=== PATIENT | female | born 1950 | race Caucasian/White ===

== ENCOUNTER 2017-12-30 13:59 | Inpatient (IN) | payer OTHER, MEDICARE ==
[~2017-12-30] VITALS: Ht 170.2 cm; Wt 162.2 kg
[~2017-12-30 13:59] MED LIST: ACIDOPHILUS1 EAC4 PO; ALTACE10 MG PO; ASPIRIN325 MG PO; Asacol PO; Ascorbic Acid,Ester- PO; B-COMPLEX-VITA1 EACH PO; BACTRIM,SEPT1 TABLET PO; Bentyl PO; CALCIUM 600 +1 EACH PO; CORGARD20 MG PO; CYCLOSET0.8 MG PO; Corgard PO; Diabeta,Micronase PO; FLAX OIL1000 MG PO; FUROSEMIDE20 MG PO; GLUCOPHAGE1000 MG PO; GLYBURIDE5 MG PO; Glyburide PO; Imodium PO; KEFLEX500 MG PO; LEVEMIR FL100 UNITS/ SC; LOTENSIN40 MG PO; Lumigan 0.01% Ophth BOTH EYES; NEURONTIN300 MG PO; NOVOLIN N100 UNITS/ SC; NOVOLIN,HU100 UNITS1 SC; NovoLOG, HumaLOG SC; OMEGA-3 FLAXS1000 MG PO; Oscal 500 w/Vitamin PO; PRILOSEC40 MG PO; PROBIOTIC & AC1 EACH PO; PROBIOTIC PO; RAMIPRIL10 MG PO; Ramipril PO; SIMVASTATIN20 MG PO; SUPER B COMP1 TABLET PO; SYNTHROID50 MCG PO; VITAMIN C1000 M1 PO; VITAMIN D2000 INTUN PO; VITAMIN D31000 UNIT PO; VITAMIN D400 UNIT PO; Vancocin Oral Soluti PO; Victoza SC; Vitamin B Complex PO; ZOCOR20 MG PO; ZOFRAN4 MG PO; Zocor PO; [UNRECOGNIZED DRUG - OTHER] PO; oxyCODONE PO
[2017-12-30 15:28] LABS: BASOPHIL (%) 0.9 % (0-1); EOSINOPHIL (%) 6.3 % (0-5); EOSINOPHIL COUNT 0.3 K/uL (0-0.3); HEMATOCRIT 27.3 % (36.0-46.0); HEMOGLOBIN 8.5 G/DL (11.9-15.5); IMMATURE GRANULOCYTE (%) 0.5 % (0.0-0.7); LYMPHOCYTE (%) 26.8 % (15-42); LYMPHOCYTE COUNT 1.2 K/uL (1.0-2.8); MCHC 31.1 G/DL (30.0-36.0); MCV 83.5 FL (83-99); MONOCYTE (%) 8.6 % (3-12); MONOCYTE COUNT 0.4 K/uL (0-0.8); NEUTROPHIL (%) 56.9 % (45-76); NEUTROPHIL COUNT 2.5 K/uL (1.8-6.4); PLATELET COUNT 91 K/uL (156-360); RBC DIS.WIDTH-CV 18.2 % (11.8-14.6); RBC DIS.WIDTH-SD 55.9 % (39-53); RED BLOOD COUNT 3.27 M/uL (3.80-5.20); WHITE BLOOD COUNT 4.4 K/uL (4.1-10.2)
[2017-12-30 15:38] LABS: ALBUMIN 2.6 g/dL (3.2-4.8)
[2017-12-30 15:39] LABS: CHLORIDE 110 mEq/L (99-109); POTASSIUM 3.9 mEq/L (3.7-5.4); SODIUM 138 mEq/L (136-147)
[2017-12-30 15:41] LABS: GLUCOSE 157 mg/dL (70-99); TOTAL PROTEIN 5.8 g/dL (6.4-8.3)
[2017-12-30 15:43] LABS: TOTAL BILIRUBIN 1.2 mg/dL (0.0-1.0)
[2017-12-30 15:44] LABS: ALKALINE PHOSPHATASE 105 IU/L (3-129)
[2017-12-30 15:45] LABS: CREATININE 0.7 mg/dL (0.6-1.3); GFR ESTIMATE (CALCULATED) > 59 mL/min/
[2017-12-30 15:46] LABS: AST (GOT) 47 IU/L (2-34); UREA NITROGEN (BUN) 12 mg/dL (9-23)
[2017-12-30 15:48] LABS: ALT (GPT) 29 IU/L (3-49); CREATINE KINASE 91 IU/L (1-294); TOTAL CK 91 IU/L (1-294)
[2017-12-30 15:53] LABS: CK-MB 1.2 ng/mL (0.0-4.9); CKMB RELATIVE INDEX 1.3 (0.0-3.9)
[2017-12-30] MEDS ORDERED: JANUVIA100 MG PO (17:47)
[2017-12-30] MEDS ORDERED: BUMEX2 MG PO (17:48)
[2017-12-30 21:05] VITALS: BP 153/64
[2017-12-31] VITALS (7 sets, daily range): BP systolic 124–159; BP diastolic 55–72
[2017-12-31 07:24] LABS: BASOPHIL COUNT 0.1 K/uL (0-0.1); EOSINOPHIL (%) 9.1 % (0-5); EOSINOPHIL COUNT 0.5 K/uL (0-0.3); HEMATOCRIT 26.6 % (36.0-46.0); HEMOGLOBIN 7.9 G/DL (11.9-15.5); IMMATURE GRANULOCYTE (%) 0.2 % (0.0-0.7); LYMPHOCYTE (%) 31.2 % (15-42); LYMPHOCYTE COUNT 1.6 K/uL (1.0-2.8); MCH 25.1 PG (29.0-34.0); MCHC 29.7 G/DL (30.0-36.0); MCV 84.4 FL (83-99); MONOCYTE (%) 9.1 % (3-12); MONOCYTE COUNT 0.5 K/uL (0-0.8); NEUTROPHIL (%) 49.4 % (45-76); NEUTROPHIL COUNT 2.5 K/uL (1.8-6.4); PLATELET COUNT 105 K/uL (156-360); RBC DIS.WIDTH-CV 18.6 % (11.8-14.6); RBC DIS.WIDTH-SD 56.7 % (39-53); RED BLOOD COUNT 3.15 M/uL (3.80-5.20); WHITE BLOOD COUNT 5.1 K/uL (4.1-10.2)
[2017-12-31 08:09] LABS: ALBUMIN 2.1 G/DL (3.2-4.8); ALKALINE PHOSPHATASE 72 IU/L (3-129); ALT (GPT) 20 IU/L (3-49); AST (GOT) 36 IU/L (2-34); CHLORIDE 111 MEQ/L (99-109); CREATININE 0.6 MG/DL (0.6-1.3); GFR ESTIMATE (CALCULATED) > 59 mL/min/; GLUCOSE 134 mg/dL (70-99); HDL CHOLESTEROL 29 MG/DL (Desirable>=50); LDL CHOLESTEROL 64 mg/dL (Desirable<100); NON-HDL CHOLESTEROL 76 mg/dL (Desirable<160); POTASSIUM 4.5 MEQ/L (3.7-5.4); SODIUM 142 MEQ/L (136-147); TOTAL BILIRUBIN 1.1 MG/DL (0.0-1.0); TOTAL CHOLESTEROL 105 mg/dL (Desirable<200); TOTAL PROTEIN 4.9 G/DL (6.4-8.3); TRIGLYCERIDES 61 MG/DL (Normal: <150); UREA NITROGEN (BUN) 10 mg/dL (9-23)
[2017-12-31 09:03] LABS: THYROTROPIN (TSH) 2.2 MIU/L (0.4-5.5)
[2018-01-01 04:09] VITALS: BP 154/70
[2018-01-01 07:39] VITALS: BP 158/63
[2018-01-01 12:09] VITALS: BP 184/89
[2018-01-01 16:02] VITALS: BP 160/64
[2018-01-01 20:00] VITALS: BP 183/70
[2018-01-02] VITALS (8 sets, daily range): BP systolic 114–190; BP diastolic 42–77
[2018-01-02 06:27] LABS: CREATININE 0.6 MG/DL (0.6-1.3); GFR ESTIMATE (CALCULATED) > 59 mL/min/
[2018-01-02 14:35] LABS: 24 HR VOLUME 675 MLS
[2018-01-03 03:52] VITALS: BP 138/68
[2018-01-03 06:34] LABS: BASOPHIL (%) 0.8 % (0-1); EOSINOPHIL (%) 9.9 % (0-5); EOSINOPHIL COUNT 0.5 K/uL (0-0.3); HEMATOCRIT 29.6 % (36.0-46.0); HEMOGLOBIN 8.9 G/DL (11.9-15.5); IMMATURE GRANULOCYTE (%) 0.2 % (0.0-0.7); LYMPHOCYTE (%) 36.9 % (15-42); LYMPHOCYTE COUNT 1.9 K/uL (1.0-2.8); MCH 25.9 PG (29.0-34.0); MCHC 30.1 G/DL (30.0-36.0); MONOCYTE (%) 9.1 % (3-12); MONOCYTE COUNT 0.5 K/uL (0-0.8); NEUTROPHIL (%) 43.1 % (45-76); NEUTROPHIL COUNT 2.3 K/uL (1.8-6.4); PLATELET COUNT 104 K/uL (156-360); RBC DIS.WIDTH-CV 18.6 % (11.8-14.6); RBC DIS.WIDTH-SD 58.3 % (39-53); RED BLOOD COUNT 3.44 M/uL (3.80-5.20); WHITE BLOOD COUNT 5.3 K/uL (4.1-10.2)
[2018-01-03 07:03] LABS: ALBUMIN 2.3 G/DL (3.2-4.8); ALKALINE PHOSPHATASE 78 IU/L (3-129); ALT (GPT) 19 IU/L (3-49); AST (GOT) 29 IU/L (2-34); CHLORIDE 103 MEQ/L (99-109); CREATININE 0.7 MG/DL (0.6-1.3); GFR ESTIMATE (CALCULATED) > 59 mL/min/; GLUCOSE 118 mg/dL (70-99); POTASSIUM 4.5 MEQ/L (3.7-5.4); SODIUM 141 MEQ/L (136-147); TOTAL PROTEIN 5.3 G/DL (6.4-8.3); UREA NITROGEN (BUN) 20 mg/dL (9-23)
[2018-01-03 07:10] VITALS: BP 143/59
[2018-01-03 11:07] VITALS: BP 149/63
[2018-01-03 15:55] VITALS: BP 138/61
[2018-01-03] MEDS ORDERED: LEVOTHYROXINE50 MCG PO (17:21)
[2018-01-03] MEDS ORDERED: LEVOFLOXACIN750 MG PO (17:21)
[2018-01-03] MEDS ORDERED: GABAPENTIN300 MG PO (17:21)
[2018-01-03] MEDS ORDERED: LISINOPRIL40 MG PO (17:21)
[2018-01-03] MEDS ORDERED: NADOLOL20 MG PO (17:21)
[2018-01-03] MEDS ORDERED: TRAMADOL HCL50 MG PO (17:21)
== END 2018-01-03 18:29 | DRG 872 ==
LOC: EME 13:59 → EDOF 18:00 → 5EAST 18:00 → ENRESERV 19:03 → CANRESERV 19:03 → ENRESERV 19:04 → 5EAST 21:03
PROVIDERS: Emergency Medicine; Family Medicine
DX: A41.9 Sepsis, unspecified organism (principal); L03.115 Cellulitis of right lower limb; Z68.44 Body mass index [BMI] 60.0-69.9, adult; E66.01 Morbid (severe) obesity due to excess calories; D69.6 Thrombocytopenia, unspecified; I89.0 Lymphedema, not elsewhere classified; E03.9 Hypothyroidism, unspecified; E11.9 Type 2 diabetes mellitus without complications; E77.8 Other disorders of glycoprotein metabolism; E78.5 Hyperlipidemia, unspecified; R23.8 Other skin changes; B96.89 Other specified bacterial agents as the cause of diseases classified elsewhere; I10 Essential (primary) hypertension; J45.909 Unspecified asthma, uncomplicated; D64.9 Anemia, unspecified; M48.00 Spinal stenosis, site unspecified; M51.36 Other intervertebral disc degeneration, lumbar region; Z79.4 Long term (current) use of insulin; Z90.49 Acquired absence of other specified parts of digestive tract; Z87.891 Personal history of nicotine dependence; Z88.1 Allergy status to other antibiotic agents; Z80.0 Family history of malignant neoplasm of digestive organs
CPT/HCPCS: 72110; 73590; 73630; 76937; 80053; 80061; 80202; 81050; 82550; 82553; 82565; 82948; 83605; 84156; 84443; 85025; 87070; 87075; 87077; 87186; 87205; 87641; 93971; 99281; 99285; A6212; C1751; C1894; J0295; J1644; J1815; J3370; J7040; J7050

== ENCOUNTER 2018-02-13 19:20 | Emergency (ER) | payer OTHER, MEDICARE ==
[~2018-02-13] VITALS: Ht 160 cm; Wt 133.2 kg
[~2018-02-13 19:20] MED LIST changes: +BUMEX2 MG PO; +GABAPENTIN300 MG PO; +JANUVIA100 MG PO; +LEVOFLOXACIN750 MG PO; +LEVOTHYROXINE50 MCG PO; +LISINOPRIL40 MG PO; +NADOLOL20 MG PO; +TRAMADOL HCL50 MG PO
[2018-02-13] MEDS ORDERED: KEFLEX500 MG PO (21:18)
[2018-02-13 22:08] VITALS: BP 161/58
== END 2018-02-13 22:09 | disposition home or self-care (01) ==
LOC: EME 19:20
DX: L03.115 Cellulitis of right lower limb (principal); I89.0 Lymphedema, not elsewhere classified; I10 Essential (primary) hypertension; J45.909 Unspecified asthma, uncomplicated; Z88.6 Allergy status to analgesic agent; Z88.8 Allergy status to other drugs, medicaments and biological substances; Z87.891 Personal history of nicotine dependence
CPT/HCPCS: 99281; 99285; J0696

== ENCOUNTER 2018-03-16 17:21 | Inpatient (IN) | payer OTHER, MEDICARE ==
[~2018-03-16] VITALS: Ht 162.6 cm; Wt 142.2 kg
[2018-03-16 18:54] LABS: HEMATOCRIT 29.6 % (36.0-46.0); HEMOGLOBIN 9.4 G/DL (11.9-15.5); MCH 26.6 PG (29.0-34.0); MCHC 31.8 G/DL (30.0-36.0); MCV 83.9 FL (83-99); PLATELET COUNT 107 K/uL (156-360); RBC DIS.WIDTH-CV 19.9 % (11.8-14.6); RBC DIS.WIDTH-SD 61.4 % (39-53); RED BLOOD COUNT 3.53 M/uL (3.80-5.20); WHITE BLOOD COUNT 14.9 K/uL (4.1-10.2)
[2018-03-16 19:05] LABS: ALBUMIN 2.8 g/dL (3.2-4.8); CHLORIDE 107 mEq/L (99-109); SODIUM 134 mEq/L (136-147)
[2018-03-16 19:08] LABS: GLUCOSE 197 mg/dL (70-99); TOTAL PROTEIN 6.5 g/dL (6.4-8.3)
[2018-03-16 19:10] LABS: TOTAL BILIRUBIN 3.2 mg/dL (0.0-1.0)
[2018-03-16 19:11] LABS: ALKALINE PHOSPHATASE 94 IU/L (3-129); CREATININE 0.8 mg/dL (0.6-1.3); GFR ESTIMATE (CALCULATED) > 59 mL/min/
[2018-03-16 19:13] LABS: AST (GOT) 47 IU/L (2-34); UREA NITROGEN (BUN) 26 mg/dL (9-23)
[2018-03-16 19:14] LABS: ALT (GPT) 34 IU/L (3-49)
[2018-03-16 19:15] LABS: TROP-I INTERPRETATION NEGATIVE; TROPONIN-I 0.02 ng/mL (0.0-0.30)
[2018-03-16 20:53] LABS: APPEARANCE CLEAR ((CLEAR)); BILIRUBIN NEGATIVE; BLOOD SMALL; COLOR YELLOW ((YELLOW)); GLUCOSE (STRIP) NEGATIVE; KETONES 5; LEUKOCYTES TRACE; NITRITE POSITIVE; PROTEIN (STRIP) NEGATIVE; SPECIFIC GRAVITY 1.025 (1.000-1.030); UROBILINOGEN 0.2 MG/DL (0.2-1.0)
[2018-03-16 21:19] LABS: BACTERIA 3+ /HPF; EPITHELIAL CELLS RARE /HPF; RED BLOOD CELLS 0-5 /HPF (0-5); UCUL ADDED? YES; WHITE BLOOD CELLS 15-20 /HPF (0-5)
[2018-03-16 21:20] LABS: MUCUS 2+ /LPF
[2018-03-16] MEDS ORDERED: BUMETANIDE2 MG PO (23:04)
[2018-03-16] MEDS ORDERED: ATORVASTATIN CA10 MG PO (23:05)
[2018-03-16] MEDS ORDERED: METFORMIN HCL1000 MG PO (23:06)
[2018-03-16] MEDS ORDERED: NEURONTIN300 MG PO (23:09)
[2018-03-17] MEDS ORDERED: JANUVIA100 MG PO (00:07)
[2018-03-17 01:49] VITALS: BP 133/55
[2018-03-17 05:17] VITALS: BP 135/57
[2018-03-17 06:48] LABS: BASOPHIL (%) 0.2 % (0-1); EOSINOPHIL (%) 0.3 % (0-5); HEMATOCRIT 25.6 % (36.0-46.0); HEMOGLOBIN 7.8 G/DL (11.9-15.5); IMMATURE GRANULOCYTE (%) 0.7 % (0.0-0.7); LYMPHOCYTE (%) 13.4 % (15-42); LYMPHOCYTE COUNT 1.4 K/uL (1.0-2.8); MCH 26.2 PG (29.0-34.0); MCHC 30.5 G/DL (30.0-36.0); MCV 85.9 FL (83-99); MONOCYTE (%) 6.9 % (3-12); MONOCYTE COUNT 0.7 K/uL (0-0.8); NEUTROPHIL (%) 78.5 % (45-76); NEUTROPHIL COUNT 7.9 K/uL (1.8-6.4); PLATELET COUNT 82 K/uL (156-360); RBC DIS.WIDTH-SD 62.8 % (39-53); RED BLOOD COUNT 2.98 M/uL (3.80-5.20); WHITE BLOOD COUNT 10.1 K/uL (4.1-10.2)
[2018-03-17 07:13] LABS: ALBUMIN 2.1 G/DL (3.2-4.8); ALKALINE PHOSPHATASE 63 IU/L (3-129); ALT (GPT) 22 IU/L (3-49); AST (GOT) 31 IU/L (2-34); CHLORIDE 109 MEQ/L (99-109); CREATININE 0.7 MG/DL (0.6-1.3); GFR ESTIMATE (CALCULATED) > 59 mL/min/; GLUCOSE 176 mg/dL (70-99); POTASSIUM 4.2 MEQ/L (3.7-5.4); SODIUM 138 MEQ/L (136-147); TOTAL BILIRUBIN 1.9 MG/DL (0.0-1.0); TOTAL PROTEIN 4.8 G/DL (6.4-8.3); UREA NITROGEN (BUN) 29 mg/dL (9-23)
[2018-03-17 07:55] VITALS: BP 123/58
[2018-03-17 18:05] VITALS: BP 123/56
[2018-03-17 19:40] VITALS: BP 125/60
[2018-03-17 23:15] VITALS: BP 160/66
[2018-03-18 04:26] VITALS: BP 150/63
[2018-03-18 07:25] VITALS: BP 152/65; BP 188/97
[2018-03-18 11:20] VITALS: BP 137/60
[2018-03-18 15:32] VITALS: BP 159/66
[2018-03-18 19:30] VITALS: BP 156/66
[2018-03-18 23:22] VITALS: BP 168/67
[2018-03-19 04:00] VITALS: BP 155/69
[2018-03-19 06:16] LABS: BASOPHIL (%) 0.8 % (0-1); BASOPHIL COUNT 0.1 K/uL (0-0.1); EOSINOPHIL (%) 8.1 % (0-5); EOSINOPHIL COUNT 0.8 K/uL (0-0.3); HEMATOCRIT 27.2 % (36.0-46.0); HEMOGLOBIN 8.4 G/DL (11.9-15.5); IMMATURE GRANULOCYTE (%) 1.1 % (0.0-0.7); LYMPHOCYTE (%) 25.5 % (15-42); LYMPHOCYTE COUNT 2.4 K/uL (1.0-2.8); MCH 26.5 PG (29.0-34.0); MCHC 30.9 G/DL (30.0-36.0); MCV 85.8 FL (83-99); MONOCYTE (%) 10.4 % (3-12); NEUTROPHIL (%) 54.1 % (45-76); RBC DIS.WIDTH-CV 19.8 % (11.8-14.6); RBC DIS.WIDTH-SD 60.7 % (39-53); RED BLOOD COUNT 3.17 M/uL (3.80-5.20); WHITE BLOOD COUNT 9.2 K/uL (4.1-10.2)
[2018-03-19 06:25] LABS: PLATELET COUNT 122 K/uL (156-360)
[2018-03-19 07:01] LABS: ALBUMIN 2.2 G/DL (3.2-4.8); ALKALINE PHOSPHATASE 76 IU/L (3-129); ALT (GPT) 20 IU/L (3-49); AST (GOT) 30 IU/L (2-34); CHLORIDE 106 MEQ/L (99-109); CREATININE 0.7 MG/DL (0.6-1.3); GFR ESTIMATE (CALCULATED) > 59 mL/min/; GLUCOSE 151 mg/dL (70-99); POTASSIUM 3.6 MEQ/L (3.7-5.4); SODIUM 140 MEQ/L (136-147); UREA NITROGEN (BUN) 20 mg/dL (9-23)
[2018-03-19 07:02] LABS: TOTAL BILIRUBIN 1.4 MG/DL (0.0-1.0)
[2018-03-19 07:32] VITALS: BP 179/75
[2018-03-19 11:58] VITALS: BP 137/63
[2018-03-19 16:00] VITALS: BP 128/56
[2018-03-19 20:12] VITALS: BP 149/65
[2018-03-20 00:06] VITALS: BP 134/60
[2018-03-20 04:36] VITALS: BP 115/72
[2018-03-20 06:37] LABS: HEMATOCRIT 26.6 % (36.0-46.0); HEMOGLOBIN 8.3 G/DL (11.9-15.5); MCH 26.8 PG (29.0-34.0); MCHC 31.2 G/DL (30.0-36.0); MCV 85.8 FL (83-99); PLATELET COUNT 110 K/uL (156-360); RBC DIS.WIDTH-SD 61.1 % (39-53)
[2018-03-20 06:59] LABS: ALBUMIN 2.1 G/DL (3.2-4.8); ALKALINE PHOSPHATASE 71 IU/L (3-129); ALT (GPT) 20 IU/L (3-49); AST (GOT) 31 IU/L (2-34); CHLORIDE 106 MEQ/L (99-109); CREATININE 0.6 MG/DL (0.6-1.3); GFR ESTIMATE (CALCULATED) > 59 mL/min/; GLUCOSE 120 mg/dL (70-99); POTASSIUM 3.3 MEQ/L (3.7-5.4); SODIUM 140 MEQ/L (136-147); TOTAL BILIRUBIN 1.3 MG/DL (0.0-1.0); TOTAL PROTEIN 4.9 G/DL (6.4-8.3); UREA NITROGEN (BUN) 14 mg/dL (9-23)
[2018-03-20 08:28] VITALS: BP 154/67
[2018-03-20 11:36] VITALS: BP 138/59
[2018-03-20 15:35] VITALS: BP 139/64
== END 2018-03-20 17:06 | disposition home or self-care (01) | DRG 872 ==
LOC: EME 17:21 → 3EAST 21:32 → EDOF 21:32 → ENRESERV 21:36 → 3EAST 23:22
PROVIDERS: Family Medicine; Nurse Practitioner Family
DX: A41.9 Sepsis, unspecified organism (principal); N39.0 Urinary tract infection, site not specified; E66.01 Morbid (severe) obesity due to excess calories; E11.9 Type 2 diabetes mellitus without complications; K74.60 Unspecified cirrhosis of liver; I10 Essential (primary) hypertension; E78.5 Hyperlipidemia, unspecified; E03.9 Hypothyroidism, unspecified; D64.9 Anemia, unspecified; N95.9 Unspecified menopausal and perimenopausal disorder; R16.1 Splenomegaly, not elsewhere classified; D69.6 Thrombocytopenia, unspecified; I89.0 Lymphedema, not elsewhere classified; E86.0 Dehydration; E80.6 Other disorders of bilirubin metabolism; Z87.891 Personal history of nicotine dependence; Z90.49 Acquired absence of other specified parts of digestive tract
CPT/HCPCS: 71045; 80053; 80202; 81003; 82010; 82140; 82948; 83605; 84484; 85025; 85027; 87040; 87077; 87086 GA; 87186; 93005; 94799; 97530 GO; 99281; 99285; J1644; J1815; J2543; J3370; J7030; J7040; J7050

== ENCOUNTER 2018-04-29 22:15 | Inpatient (IN) | payer OTHER, MEDICARE ==
[~2018-04-29] VITALS: Ht 162.6 cm; Wt 130.0 kg
[~2018-04-29 22:15] MED LIST changes: +ATORVASTATIN CA10 MG PO; +BUMETANIDE2 MG PO; +METFORMIN HCL1000 MG PO
[2018-04-29 23:17] LABS: BASOPHIL (%) 0.4 % (0-1); BASOPHIL COUNT 0.1 K/uL (0-0.1); EOSINOPHIL (%) 0.5 % (0-5); EOSINOPHIL COUNT 0.1 K/uL (0-0.3); HEMATOCRIT 29.7 % (36.0-46.0); HEMOGLOBIN 9.7 G/DL (11.9-15.5); IMMATURE GRANULOCYTE (%) 0.7 % (0.0-0.7); LYMPHOCYTE (%) 8.6 % (15-42); LYMPHOCYTE COUNT 1.3 K/uL (1.0-2.8); MCH 27.6 PG (29.0-34.0); MCHC 32.7 G/DL (30.0-36.0); MCV 84.4 FL (83-99); MONOCYTE (%) 8.1 % (3-12); MONOCYTE COUNT 1.2 K/uL (0-0.8); NEUTROPHIL (%) 81.7 % (45-76); NEUTROPHIL COUNT 12.5 K/uL (1.8-6.4); PLATELET COUNT 140 K/uL (156-360); RBC DIS.WIDTH-CV 17.8 % (11.8-14.6); RBC DIS.WIDTH-SD 53.8 % (39-53); RED BLOOD COUNT 3.52 M/uL (3.80-5.20); WHITE BLOOD COUNT 15.3 K/uL (4.1-10.2)
[2018-04-29 23:21] LABS: APPEARANCE TURBID ((CLEAR)); BILIRUBIN NEGATIVE; BLOOD LARGE; GLUCOSE (STRIP) NEGATIVE; KETONES NEGATIVE; LEUKOCYTES LARGE; NITRITE POSITIVE; PROTEIN (STRIP) 100; SPECIFIC GRAVITY 1.015 (1.000-1.030)
[2018-04-29 23:33] LABS: AMPHETAMINE NEGATIVE (500 ng/mL); BARBITURATES NEGATIVE (200 ng/mL); BENZODIAZEPINES NEGATIVE (150 ng/mL); BUPRENORPHINE NEGATIVE (10 ng/mL); COCAINE NEGATIVE (150 ng/mL); METHADONE NEGATIVE (200 ng/mL); METHAMPHETAMINE NEGATIVE (500 ng/mL); OPIATES (MORPHINE) NEGATIVE (100 ng/mL); OXYCODONE NEGATIVE (100 ng/mL); PHENCYCLIDINE NEGATIVE (25 ng/mL); PROPOXYPHENE NEGATIVE (300 ng/mL); THC CANNABINOIDS NEGATIVE (50 ng/mL); TRICYCLIC ANTIDEPRESSANTS NEGATIVE (300 ng/mL)
[2018-04-29 23:37] LABS: ALBUMIN 2.6 g/dL (3.2-4.8); CHLORIDE 102 mEq/L (99-109); POTASSIUM 4.7 mEq/L (3.7-5.4); SODIUM 135 mEq/L (136-147)
[2018-04-29 23:39] LABS: GLUCOSE 156 mg/dL (70-99)
[2018-04-29 23:40] LABS: TOTAL PROTEIN 6.7 g/dL (6.4-8.3)
[2018-04-29 23:41] LABS: TOTAL BILIRUBIN 3.6 mg/dL (0.0-1.0)
[2018-04-29 23:43] LABS: ALKALINE PHOSPHATASE 99 IU/L (3-129); CREATININE 0.9 mg/dL (0.6-1.3); GFR ESTIMATE (CALCULATED) > 59 mL/min/
[2018-04-29 23:44] LABS: UREA NITROGEN (BUN) 18 mg/dL (9-23)
[2018-04-29 23:45] LABS: AST (GOT) 41 IU/L (2-34)
[2018-04-29 23:46] LABS: ALT (GPT) 27 IU/L (3-49)
[2018-04-29 23:50] LABS: BACTERIA NONE SEEN /HPF; COLOR AMBER ((YELLOW)); EPITHELIAL CELLS RARE /HPF; MUCUS 2+ /LPF; RED BLOOD CELLS TNTC /HPF (0-5); UCUL ADDED? YES; WHITE BLOOD CELLS TNTC /HPF (0-5)
[2018-04-30] VITALS (10 sets, daily range): BP systolic 78–165; BP diastolic 30–66
[2018-04-30 12:19] LABS: ALBUMIN 1.9 g/dL (3.2-4.8); CHLORIDE 106 mEq/L (99-109); POTASSIUM 5.1 mEq/L (3.7-5.4); SODIUM 135 mEq/L (136-147)
[2018-04-30 12:21] LABS: GLUCOSE 207 mg/dL (70-99)
[2018-04-30 12:24] LABS: TOTAL BILIRUBIN 2.6 mg/dL (0.0-1.0); TOTAL PROTEIN 4.9 g/dL (6.4-8.3)
[2018-04-30 12:25] LABS: ALKALINE PHOSPHATASE 74 IU/L (3-129); CREATININE 1.2 mg/dL (0.6-1.3); GFR ESTIMATE (CALCULATED) 47 mL/min/
[2018-04-30 12:26] LABS: UREA NITROGEN (BUN) 23 mg/dL (9-23)
[2018-04-30 12:27] LABS: AST (GOT) 46 IU/L (2-34)
[2018-04-30 12:28] LABS: ALT (GPT) 25 IU/L (3-49)
[2018-04-30 12:35] LABS: HEMATOCRIT 24.9 % (36.0-46.0); HEMOGLOBIN 7.9 G/DL (11.9-15.5); MCH 27.2 PG (29.0-34.0); MCHC 31.7 G/DL (30.0-36.0); MCV 85.9 FL (83-99); RBC DIS.WIDTH-CV 18.2 % (11.8-14.6); RBC DIS.WIDTH-SD 56.3 % (39-53)
[2018-04-30 13:33] LABS: ABS NEUTROPHIL COUNT 21.1; ANISOCYTOSIS 1+; BAND NEUTROPHILS 8.2 % (0-8.0); EOSINOPHIL ABS CT 0; HEMATOLOGY COMMENT 1 SN; HYPOCHROMASIA 2+; LYMPHOCYTES 2.2 % (15.0-45.0); MACROCYTES 1+; MONOCYTES 1.7 % (0-9.0); OVALOCYTES 1+; PLAT.SUFFICIENCY DECREASED; PLATELET COUNT 92 K/uL (156-360); POLYCHROMASIA 1+; SEG.NEUTROPHILS 87.9 % (46.0-76.0); TOX.VACUOLIZATION 1+; TOXIC GRANULATION 2+
[2018-05-01] VITALS (7 sets, daily range): BP systolic 119–173; BP diastolic 57–76
[2018-05-01 06:02] LABS: BASOPHIL (%) 0.1 % (0-1); EOSINOPHIL (%) 0.8 % (0-5); EOSINOPHIL COUNT 0.1 K/uL (0-0.3); HEMATOCRIT 26.5 % (36.0-46.0); HEMOGLOBIN 8.1 G/DL (11.9-15.5); IMMATURE GRANULOCYTE (%) 0.5 % (0.0-0.7); LYMPHOCYTE (%) 8.4 % (15-42); LYMPHOCYTE COUNT 1.2 K/uL (1.0-2.8); MCH 26.9 PG (29.0-34.0); MCHC 30.6 G/DL (30.0-36.0); MONOCYTE (%) 10.3 % (3-12); MONOCYTE COUNT 1.5 K/uL (0-0.8); NEUTROPHIL (%) 79.9 % (45-76); NEUTROPHIL COUNT 11.7 K/uL (1.8-6.4); PLATELET COUNT 95 K/uL (156-360); RBC DIS.WIDTH-CV 18.3 % (11.8-14.6); RBC DIS.WIDTH-SD 57.2 % (39-53); RED BLOOD COUNT 3.01 M/uL (3.80-5.20); WHITE BLOOD COUNT 14.7 K/uL (4.1-10.2)
[2018-05-01] MEDS ORDERED: CORGARD20 MG PO (12:13)
[2018-05-01] MEDS ORDERED: INSULIN SC (12:19)
[2018-05-01] MEDS ORDERED: ZOCOR20 MG PO (12:21)
[2018-05-01] MEDS ORDERED: LOTENSIN40 MG PO (12:26)
[2018-05-01 18:13] LABS: INTER. NORMALIZED RATIO 1.5
[2018-05-01 18:16] LABS: PTT 27.5 SEC (25-37)
[2018-05-02 03:30] LABS: BASOPHIL (%) 0.2 % (0-1); EOSINOPHIL (%) 0.7 % (0-5); EOSINOPHIL COUNT 0.1 K/uL (0-0.3); HEMATOCRIT 28.5 % (36.0-46.0); IMMATURE GRANULOCYTE (%) 0.9 % (0.0-0.7); LYMPHOCYTE (%) 13.8 % (15-42); LYMPHOCYTE COUNT 2.1 K/uL (1.0-2.8); MCH 27.4 PG (29.0-34.0); MCHC 31.6 G/DL (30.0-36.0); MCV 86.6 FL (83-99); MONOCYTE (%) 12.1 % (3-12); MONOCYTE COUNT 1.9 K/uL (0-0.8); NEUTROPHIL (%) 72.3 % (45-76); PLATELET COUNT 113 K/uL (156-360); RBC DIS.WIDTH-CV 18.6 % (11.8-14.6); RBC DIS.WIDTH-SD 56.6 % (39-53); RED BLOOD COUNT 3.29 M/uL (3.80-5.20); WHITE BLOOD COUNT 15.2 K/uL (4.1-10.2)
[2018-05-02 03:35] VITALS: BP 143/69
[2018-05-02 03:52] LABS: CREATININE 1.2 MG/DL (0.6-1.3)
[2018-05-02 05:12] LABS: ALKALINE PHOSPHATASE 72 IU/L (3-129); ALT (GPT) 36 IU/L (3-49); AST (GOT) 64 IU/L (2-34); CHLORIDE 106 MEQ/L (99-109); CREATININE 1.2 MG/DL (0.6-1.3); GFR ESTIMATE (CALCULATED) 47 mL/min/; GLUCOSE 242 mg/dL (70-99); POTASSIUM 4.3 MEQ/L (3.7-5.4); SODIUM 138 MEQ/L (136-147); TOTAL BILIRUBIN 1.5 MG/DL (0.0-1.0); TOTAL PROTEIN 5.3 G/DL (6.4-8.3); UREA NITROGEN (BUN) 31 mg/dL (9-23)
[2018-05-02 07:07] VITALS: BP 146/71
[2018-05-02 11:10] VITALS: BP 132/63
[2018-05-02 15:13] VITALS: BP 126/58
[2018-05-02 15:15] VITALS: BP 118/52
[2018-05-02 16:55] LABS: INTER. NORMALIZED RATIO 1.5
[2018-05-02 16:58] LABS: PTT 63.4 SEC (25-37)
[2018-05-02 20:10] VITALS: BP 146/67
[2018-05-02 23:24] LABS: INTER. NORMALIZED RATIO 1.4
[2018-05-02 23:27] LABS: PTT 60.3 SEC (25-37)
[2018-05-03] VITALS (7 sets, daily range): BP systolic 137–158; BP diastolic 61–80
[2018-05-03 06:36] LABS: BASOPHIL (%) 0.5 % (0-1); BASOPHIL COUNT 0.1 K/uL (0-0.1); EOSINOPHIL (%) 5.7 % (0-5); EOSINOPHIL COUNT 0.5 K/uL (0-0.3); HEMATOCRIT 28.9 % (36.0-46.0); HEMOGLOBIN 8.9 G/DL (11.9-15.5); IMMATURE GRANULOCYTE (%) 1.2 % (0.0-0.7); LYMPHOCYTE (%) 23.6 % (15-42); LYMPHOCYTE COUNT 2.2 K/uL (1.0-2.8); MCH 26.8 PG (29.0-34.0); MCHC 30.8 G/DL (30.0-36.0); MONOCYTE (%) 14.4 % (3-12); MONOCYTE COUNT 1.3 K/uL (0-0.8); NEUTROPHIL (%) 54.6 % (45-76); PLATELET COUNT 98 K/uL (156-360); RBC DIS.WIDTH-SD 58.6 % (39-53); RED BLOOD COUNT 3.32 M/uL (3.80-5.20); WHITE BLOOD COUNT 9.2 K/uL (4.1-10.2)
[2018-05-04 04:00] VITALS: BP 140/63
[2018-05-04 06:07] LABS: BASOPHIL (%) 0.5 % (0-1); EOSINOPHIL (%) 6.9 % (0-5); EOSINOPHIL COUNT 0.6 K/uL (0-0.3); HEMATOCRIT 29.4 % (36.0-46.0); HEMOGLOBIN 9.2 G/DL (11.9-15.5); IMMATURE GRANULOCYTE (%) 1.3 % (0.0-0.7); LYMPHOCYTE (%) 25.8 % (15-42); LYMPHOCYTE COUNT 2.2 K/uL (1.0-2.8); MCH 27.1 PG (29.0-34.0); MCHC 31.3 G/DL (30.0-36.0); MCV 86.5 FL (83-99); MONOCYTE (%) 12.3 % (3-12); NEUTROPHIL (%) 53.2 % (45-76); NEUTROPHIL COUNT 4.5 K/uL (1.8-6.4); PLATELET COUNT 109 K/uL (156-360); RBC DIS.WIDTH-CV 19.1 % (11.8-14.6); RBC DIS.WIDTH-SD 59.3 % (39-53); WHITE BLOOD COUNT 8.5 K/uL (4.1-10.2)
[2018-05-04 06:33] LABS: ALKALINE PHOSPHATASE 88 IU/L (3-129); ALT (GPT) 36 IU/L (3-49); AST (GOT) 46 IU/L (2-34); CHLORIDE 105 MEQ/L (99-109); CREATININE 0.8 MG/DL (0.6-1.3); GFR ESTIMATE (CALCULATED) > 59 mL/min/; GLUCOSE 200 mg/dL (70-99); SODIUM 141 MEQ/L (136-147); TOTAL BILIRUBIN 1.4 MG/DL (0.0-1.0); TOTAL PROTEIN 5.3 G/DL (6.4-8.3); UREA NITROGEN (BUN) 18 mg/dL (9-23)
[2018-05-04 06:41] LABS: POTASSIUM 3.4 MEQ/L (3.7-5.4)
[2018-05-04 08:20] VITALS: BP 134/79
[2018-05-04 12:15] VITALS: BP 126/72
[2018-05-04 16:52] VITALS: BP 172/77
[2018-05-04 19:40] VITALS: BP 135/64
[2018-05-04 19:50] LABS: INTER. NORMALIZED RATIO 1.3
[2018-05-04 23:25] VITALS: BP 129/62
[2018-05-05 03:42] VITALS: BP 125/61
[2018-05-05 06:42] LABS: INTER. NORMALIZED RATIO 1.3
[2018-05-05 07:10] VITALS: BP 139/63
[2018-05-05 08:45] LABS: BASOPHIL (%) 0.7 % (0-1); BASOPHIL COUNT 0.1 K/uL (0-0.1); EOSINOPHIL COUNT 0.7 K/uL (0-0.3); HEMATOCRIT 31.7 % (36.0-46.0); HEMOGLOBIN 9.6 G/DL (11.9-15.5); LYMPHOCYTE (%) 26.4 % (15-42); LYMPHOCYTE COUNT 2.4 K/uL (1.0-2.8); MCHC 30.3 G/DL (30.0-36.0); MONOCYTE (%) 11.9 % (3-12); MONOCYTE COUNT 1.1 K/uL (0-0.8); NEUTROPHIL COUNT 4.7 K/uL (1.8-6.4); NRBC (%) 0.2 /100 WBC (0-0); PLATELET COUNT 110 K/uL (156-360); RBC DIS.WIDTH-CV 19.6 % (11.8-14.6); RBC DIS.WIDTH-SD 62.9 % (39-53); RED BLOOD COUNT 3.56 M/uL (3.80-5.20); WHITE BLOOD COUNT 9.1 K/uL (4.1-10.2)
[2018-05-05 12:07] VITALS: BP 126/70
[2018-05-05] MEDS ORDERED: CEFUROXIME500 MG PO (13:32)
[2018-05-05] MEDS ORDERED: XARELTO15 MG PO (13:33)
[2018-05-05] MEDS ORDERED: XARELTO20 MG PO (14:05)
[2018-05-05 16:24] VITALS: BP 160/84
== END 2018-05-05 17:10 | DRG 871 ==
LOC: EME 22:15 → 2EAST 04-30 02:02 → EDOF 04-30 02:02 → ENRESERV 04-30 02:32 → 2EAST 04-30 03:49
PROVIDERS: Emergency Medicine; Family Medicine; Internal Medicine
DX: A41.9 Sepsis, unspecified organism (principal); N10 Acute pyelonephritis; R65.20 Severe sepsis without septic shock; G89.29 Other chronic pain; M54.5 Low back pain; I89.0 Lymphedema, not elsewhere classified; B96.20 Unspecified Escherichia coli [E. coli] as the cause of diseases classified elsewhere; G93.40 Encephalopathy, unspecified; E66.01 Morbid (severe) obesity due to excess calories; K74.60 Unspecified cirrhosis of liver; R18.8 Other ascites; R16.1 Splenomegaly, not elsewhere classified; J44.9 Chronic obstructive pulmonary disease, unspecified; E87.2 Acidosis; I10 Essential (primary) hypertension; E11.9 Type 2 diabetes mellitus without complications; D69.6 Thrombocytopenia, unspecified; D64.9 Anemia, unspecified; E78.5 Hyperlipidemia, unspecified; E03.9 Hypothyroidism, unspecified; Z79.84 Long term (current) use of oral hypoglycemic drugs; Z79.01 Long term (current) use of anticoagulants; Z87.891 Personal history of nicotine dependence; Z68.42 Body mass index [BMI] 45.0-49.9, adult
CPT/HCPCS: 71046; 72132; 74177; 78580; 80053; 80202; 81003; 82565; 82948; 83605; 84520; 85025; 85379; 85610; 85730; 87040; 87077; 87086 GA; 87186; 87801; 93005; 94640; 94799; 97530 GO; 97530 GP; 99281; 99285; A9540; J0696; J1815; J2543; J3370; J7030; J7040; J7050